=== PATIENT | male | born 1965 ===

== ENCOUNTER 2023-11-14 18:10 | Outpatient (REF) | payer OTHER, SELFPAY ==
[2023-11-14 17:52] LABS: Rheumatoid Factor 30.7 IU/mL (<12.0)
[2023-11-17 09:46] LABS: Cyclic Citrullinated Peptide <2.5 U/mL (<5.0)
[2023-11-17 13:51] LABS: ANA Interpretation Negative (Negative)
[2023-11-19 17:05] LABS: Alter tenuis/alternata IgG 7.5 mcg/mL (<12.0); Aspergillus fumigatus IgG 33.7 mcg/mL (<46.0); Laceyella sacchari IgG 2.5 mcg/mL (<25.0); Micropolyspora faeni IgG <2.0 mcg/mL (<5.0); Penicillium Chrysogenum IgG 15.9 mcg/mL (<22.0)
== END 2023-11-14 18:11 | disposition home or self-care (01) ==
LOC: LBN 18:10
PROVIDERS: PCP Nurse Practitioner Family; Visit Provider Student in an Organized Health Care Education/Training Program
DX: J84.9 Interstitial pulmonary disease, unspecified (principal)
CPT/HCPCS: 86001; 86200; 86038; 86431